=== PATIENT | female | born 1980 | race Asian ===

== ENCOUNTER 2019-03-25 15:57 | Day surgery (SDC) | payer OTHER ==
[~2019-03-25] VITALS: Ht 157.5 cm; Wt 45.4 kg
[2019-03-25 16:42] LABS: BASOPHILS % (AUTO) 0.2 % (0.0-2.0); EOSINOPHILS # (AUTO) 0.1 K/uL (0.0-0.4); EOSINOPHILS % (AUTO) 0.6 % (0.0-4.0); HEMATOCRIT 38.5 % (36-48); HEMOGLOBIN 12.9 g/dL (12.0-16.0); LYMPHOCYTES # (AUTO) 1.7 K/uL (1.0-5.5); LYMPHOCYTES % (AUTO) 17.9 % (20.5-51.5); MEAN CORPUSCULAR HEMOGLOBIN 30 pg (27-31); MEAN CORPUSCULAR HGB CONC 33 % (32-36); MEAN CORPUSCULAR VOLUME 90 fL (79.0-98.0); MONOCYTES # (AUTO) 0.4 K/uL (0.0-1.0); MONOCYTES % (AUTO) 4.5 % (1.7-9.3); NEUTROPHILS # (AUTO) 7.4 K/uL (1.8-7.7); NEUTROPHILS % (AUTO) 76.8 % (40.0-70.0); PLATELET COUNT (AUTO) 346 K/uL (130-430); RED BLOOD CELL COUNT(AUTO) 4.29 MIL/uL (4.2-6.2); RED CELL DISTRIBUTION WIDTH 12.6 % (9.0-15.0); WHITE BLOOD COUNT (AUTO) 9.6 K/uL (4.8-10.8)
[2019-03-25] MEDS ORDERED: CEFAZOLIN SOD 1 GM in D5W 50 ML IV ONE (16:45)
[2019-03-25] MEDS ORDERED: KETOROLAC TROMETHAMINE 30 MG VIAL IVP ONE ×2 (17:10→19:30)
[2019-03-25] MEDS ORDERED: NS 1000 ML IV.SOLN IV ONE (17:10)
[2019-03-25] MEDS ORDERED: PHENYLEPHRINE HCL 10 MG/ML VIAL (NEOSYNEPHRINE) IV ONE (17:10)
[2019-03-25] MEDS ORDERED: SEVOFLURANE 15 MIN GAS INH ONE (17:10)
[2019-03-25] MEDS ORDERED: ROCURONIUM BROMIDE 10 MG/ML (ZEMURON) IV ONE (17:10)
[2019-03-25] MEDS ORDERED: ONDANSETRON HCL 4 MG/2 ML VIAL IVP ONE (17:10)
[2019-03-25] MEDS ORDERED: fentaNYL CITRATE/PF 100 MCG/2 ML AMP IVP ONE (17:10)
[2019-03-25] MEDS ORDERED: GLYCOPYRROLATE 0.2 MG/ML VIAL IJ ONE (17:10)
[2019-03-25] MEDS ORDERED: NS IRRIG SOLN 1000 ML IR ONE (17:10)
[2019-03-25] MEDS ORDERED: NEOSTIGMINE METHYLSULFATE 1 MG/ML, 10 ML VIAL IM ONE (17:10)
[2019-03-25] MEDS ORDERED: PROPOFOL 200MG/ 20ML VIAL (DIPRIVAN) IV ONE (17:10)
[2019-03-25] MEDS ORDERED: BUPIVACAINE /EPINEPHRINE/PF 0.25% 30 ML VIAL INJ ONE (17:10)
[2019-03-25] MEDS ORDERED: MIDAZOLAM HCL 5 MG/5 ML VIAL IVP ONE (17:10)
[2019-03-25] MEDS ORDERED: LR 1,000 ML IV SCH (17:50)
[2019-03-25] MEDS ORDERED: METOCLOPRAMIDE HCL 10 MG/2 ML VIAL IVP PRN (18:00)
[2019-03-25] MEDS ORDERED: MORPHINE 4 MG/ML INJ. SYRINGE IVP PRN ×3 (18:00)
[2019-03-25] MEDS ORDERED: OXYCODONE/ACETAMINOPHEN 5-325 TABLET PO PRN (18:15)
[2019-03-25] MEDS ORDERED: HYDROcodone/ACETAMIN 5-325 MG TAB (NORCO/ VICODIN) PO PRN (18:15)
[2019-03-25] MEDS ORDERED: ONDANSETRON HCL 4 MG/2 ML VIAL IVP PRN (18:15)
[2019-03-25 19:38] VITALS: BP_SYST 110
[2019-03-25] MEDS ORDERED: SIMETHICONE 80 MG TAB.CHEW PO SCH (21:00)
== END 2019-03-25 21:15 | disposition home or self-care (01) ==
LOC: SDS 15:57
PROVIDERS: ATTEND Specialist
DX: O00.90 Unspecified ectopic pregnancy without intrauterine pregnancy (principal); O99.611 Diseases of the digestive system complicating pregnancy, first trimester; K66.1 Hemoperitoneum; Z98.890 Other specified postprocedural states
CPT/HCPCS: 36415; 59151; 85025; 86886; 86900; 86901; 88305; C1727; C1782; J0690; J1885; J2250; J2370; J2405; J2704; J2710; J3010; J3490 ×2; J7030; J7060